=== PATIENT | female | born 1955 | race Two or more races ===

== ENCOUNTER 2019-04-14 01:28 | Emergency (ER) | payer MEDICARE ==
[2019-04-14] MEDS ORDERED: ACETAMINOPHEN 325 MG TABLET PO ONE (03:04)
[2019-04-14] MEDS ORDERED: TRAMADOL HCL 50 MG TABLET PO ONE (06:53)
--- NOTE | 2019-04-14 06:54 | ER Document Report ---
ED General - General Chief Complaint: Mouth Problem Stated Complaint: TOOTHACHE Time Seen by Provider: 04/14/19 06:05 Notes: 63-year-old female presents to the ER with multiple complaints. Patient's first complaint was that she has a toothache on her right lower tooth. She states is been aching on and off it started yesterday. She denies any fever chills denies any problems swallowing. Denies any falls or trauma. Patient also has a his tory of nephrotic syndrome and chronic leg swelling. The patient came in from [place] 4 days ago. States she is moving here. States she has multiple medical problems. She states she was not getting the treatment she felt that she was needing in [place] and has come here. She has not established or made an attempt to establish with anybody yet. She denies any fever or chills. States she aches all over more so her legs. Her legs have chronic skin changes. She feels that they are more swollen than usual. - Related Data Allergies/Adverse Reactions: acetaminophen [From Vicodin] Allergy (Verified 04/14/19 01:33) carisoprodol [From Soma] Allergy (Verified 04/14/19 01:33) hydrocodone [From Vicodin] Allergy (Verified 04/14/19 03:47) Hives morphine Allergy (Verified 04/14/19 03:47) Hallucinations Penicillins Allergy (Verified 04/14/19 03:47) Shortness of Breath tetracycline Allergy (Verified 04/14/19 03:47) Hives xe Allergy (Severe, Uncoded 04/14/19 03:47) Blisters Past Medical History - Social History Smoking Status: Unknown if Ever Smoked Frequency of alcohol use: None Drug Abuse: None Family History: Reviewed & Not Pertinent Patient has suicidal ideation: No Patient has homicidal ideation: No Renal/ Medical History: Denies: Hx Peritoneal Dialysis Review of Systems - Review of Systems Constitutional: denies: Chills, Fever EENT: Dental problem Gastrointestinal: denies: Nausea, Vomiting Musculoskeletal: Leg swelling, Ankle swelling Hematologic/Lymphatic: denies: Other Neurological/Psychological: denies: Headaches -: Yes All other systems reviewed and negative Physical Exam - Vital signs Vitals: Temp Pulse Resp BP Pulse Ox 97.8 F 105 H 16 190/105 H 98 04/14/19 01:36 04/14/19 01:36 04/14/19 01:36 04/14/19 01:36 04/14/19 01:36 - Notes Notes: GENERAL_APPEARANCE: well_nourished, alert, cooperative, no_acute_distress, no_obvious_discomfort. VITALS: reviewed, see vital signs table. HEAD: no_swelling\tenderness on the head. EYES: PERRL, EOMI, conjunctiva_clear. NOSE: no_nasal_discharge. MOUTH: (-)decreased moisture. Overall very poor dentition. #30 tooth pain -no obvious abscess THROAT: no_tonsilar_inflammation, no_airway_obstruction. no_lymphadenopathy NECK: supple, no_neck_tenderness, (-)thyromegaly. BACK: no_back_tenderness. CHEST_WALL: no_chest_tenderness. LUNGS: no_wheezing, no_rales, no_rhonchi, (-)accessory muscle use, good air exchange bilateral. HEART: normal_rate, normal_rhythm, normal_S1, normal_S2, (-)S3, (-)S4, no_murmu r, no_rub. ABDOMEN: soft, no_abd_tenderness, (-)guarding, (-)rebound, no_organomegaly, no_abd_masses. EXTREMITIES: 3+ edema is noted bilateral. There are chronic skin changes and leg wounds, there appears to be a slight bit more redness on the right than the left. SKIN: warm, dry, good_color, no_rash. MENTAL_STATUS: speech_clear, oriented_X_3, normal_affect, responds_appropriately to questions. NEURO: Neg Motor or Sensory Deficits on exam, CN 2-12 intact, DTR 2+ symmetric x 4, No cerbellar signs Course - Re-evaluation Re-evalutation: 04/14/19 06:52 63-year-old female presents to the ER with multiple complaints. She complains of a toothache. I will give her something for pain for that. Patient also complains of lower extremity swelling. She was riding in a car from [place] 3 or 4 days ago. She is moving here. States she is taking her medications. She is here to get established for medical. A lot of this looks chronic we will check some generalized blood work. - Vital Signs Vital signs: Temp Pulse Resp BP Pulse Ox 97.7 F 77 20 151/80 H 98 04/14/19 05:30 04/14/19 05:30 04/14/19 05:30 04/14/19 05:30 04/14/19 05:30 04/14/19 10:26 Patient is doing better. Likely her edema in her legs were due to being on the road so much not been able to elevate her rest likely dependent edema with her already pre-existing venous insufficiency and anasarca. Her tooth has a crown on it. I see no redness around the root or anything to suggest abscess we will place the patient on clindamycin though and something for pain she is very limited for which she can take for pain we will give her a short supply. He is to get in contact with dentistry for evaluation as soon as possible. Chest x-ray and BNP were low my suspicion for heart failure is is low patient states she has more than enough Lasix at home advised her to rest elevate her feet and take the Lasix as prescribed. Encouraged her to establish with primary care soon as possible. - Laboratory Result Diagrams: 04/14/19 06:50 04/14/19 06:50 Laboratory results interpreted by me: 04/14/19 04/14/19 04/14/19 06:50 06:50 07:34 RDW 14.7 H Carbon Dioxide 31 H BUN 21 H Est GFR ( Amer) 53 L Est GFR (Non-Af Amer) 43 L Glucose 259 H Total Protein 5.7 L Albumin 3.3 L Urine Protein >=500 H Urine Glucose (UA) 150 H - Diagnostic Test Radiology reviewed: Reports reviewed Radiology results interpreted by me: 04/14/19 10:25 Chest X-Ray 04/14/19 06:47 IMPRESSION: No evidence of acute intrathoracic disease. Suspect minimal right basilar fibrosis and/or atelectasis. - EKG Interpretation by Nh EKG shows normal: Sinus rhythm Rate: Normal Rhythm: NSR Discharge - Discharge Clinical Impression: Toothache, Anasarca, Venous insufficiency of both lower extremities Condition: Good Disposition: HOME, SELF-CARE Instructions: Toothache ([facility]) Prescriptions: Clindamycin HCl [Cleocin 300 mg Capsule] 300 mg PO QID #30 capsule Oxycodone HCl 5 mg PO QID PRN #18 capsule PRN Reason:
[2019-04-14 07:07] LABS: INTERNATIONAL RATION (INR) 0.96; PROTHROMBIN TIME 12.8 SEC (11.4-15.4)
[2019-04-14] MEDS ORDERED: LIDOCAINE 2% VISCOUS SOLN 20 ML UDCUP PO ONE (07:16)
[2019-04-14 07:18] LABS: ALBUMIN 3.3 g/dL (3.5-5.0); ALKALINE PHOSPHATASE 89 U/L (38-126); ANION GAP 7 (5-19); ASPARTATE AMINO TRANSFERASE 27 U/L (14-36); BILIRUBIN,DIRECT 0.3 mg/dL (0.0-0.4); BILIRUBIN,TOTAL 0.6 mg/dL (0.2-1.3); BLOOD UREA NITROGEN 21 mg/dL (7-20); CARBON DIOXIDE 31 mmol/L (22-30); CHLORIDE 101 mmol/L (98-107); CREATINE KINASE 43 U/L (30-135); GLUCOSE 259 mg/dL (75-110); TOTAL PROTEIN 5.7 g/dL (6.3-8.2)
[2019-04-14 07:22] LABS: ABSOLUTE BASOPHILS # (AUTO) 0.1 10^3/uL (0.0-0.2); ABSOLUTE EOSINOPHILS # (AUTO) 0.5 10^3/uL (0.0-0.6); ABSOLUTE MONOCYTES (AUTO) 0.8 10^3/uL (0.1-1.4); ABSOLUTE NEUT (AUTO) 6.4 10^3/uL (1.7-8.2); BASOPHILS % (AUTO) 0.8 % (0-2); EOSINOPHILS % (AUTO) 4.7 % (0-6); HEMATOCRIT 44.2 % (36.0-47.0); LYMPHOCYTES % (AUTO) 20.9 % (13-45); MEAN CORPUSCULAR HEMOGLOBIN 31.6 pg (27.0-33.4); MEAN CORPUSCULAR HGB CONC 33.9 g/dL (32.0-36.0); MEAN CORPUSCULAR VOLUME 93 fl (80-97); MONOCYTES % (AUTO) 8.5 % (3-13); PLATELET COUNT 224 10^3/uL (150-450); RED BLOOD COUNT 4.75 10^6/uL (3.72-5.28); RED CELL DISTRIBUTION WIDTH 14.7 % (11.5-14.0); SEGMENTED NEUTROPHILS % (AUTO) 65.1 % (42-78); TOTAL CELLS COUNTED % (AUTO) 100 %; WHITE BLOOD COUNT 9.8 10^3/uL (4.0-10.5)
[2019-04-14 07:30] LABS: NT PRO BNP 669 pg/mL (5-900)
--- NOTE | 2019-04-14 07:35 | RADIOLOGY REPORT (SQ) ---
EXAM DESCRIPTION: X-ray single view chest. CLINICAL HISTORY: 63 years Female, Edema COMPARISON: None. TECHNIQUE: Single portable x-ray view of the chest performed on 04/14/2019 at 7:14 AM FINDINGS: The lungs are well expanded and are grossly clear. There is probable minimal fibrosis or atelectasis in the right lung base. The lungs are otherwise grossly clear. There is no evidence of a pneumothorax. The cardiac silhouette is normal in size and configuration. The mediastinal contours are normal. No acute osseous abnormality is identified. No focal soft tissue abnormalities are seen. Lines and tubes: None. IMPRESSION: No evidence of acute intrathoracic disease. Suspect minimal right basilar fibrosis and/or atelectasis.
[2019-04-14 07:37] LABS: TROPONIN I < 0.012 ng/mL
[2019-04-14 08:00] LABS: APPEARANCE,URINE CLEAR; BILIRUBIN,URINE NEGATIVE (NEGATIVE); COLOR,URINE YELLOW; GLUCOSE, URINE 150 mg/dL (NEGATIVE); KETONES,URINE NEGATIVE (NEGATIVE); LEUKOCYTE ESTERASE,URINE NEGATIVE (NEGATIVE); NITRITE,URINE NEGATIVE (NEGATIVE); PROTEIN,URINE >=500 mg/dL (NEGATIVE); URINE SPECIFIC GRAVITY 1.019; UROBILINOGEN,URINE NEGATIVE mg/dL (<2.0)
[2019-04-14] MEDS ORDERED: OXYCODONE HCL IR 5 MG TABLET PO ONE (08:38)
[2019-04-14 11:03] VITALS: BP 144/74
--- NOTE | 2019-04-14 11:30 | XCELERA REPORT ---
[address] [address] Lower Extremity Venous Evaluation Procedure: Color flow and duplex imaging bilaterally of the veins of the lower extremities as well as the Common Femoral veins. Right Sided Venous Evaluation Difficult study due to body habitus. Normal vessel filling wall to wall, compression and augmentation as well as Colour flow down to the infrageniculate veins. Left Sided Venous Evaluation Difficult study due to body habitus. Normal vessel filling wall to wall, compression and augmentation as well as Colour flow down to the infrageniculate veins. Critical Findings Study discussed with Dr Urrutia at about 1100 hours. Interpretation Summary No duplex evidence of DVT or obstruction in the bilateral lower extremities. Name: NAIN CARD Berny Age: 63 yrs Gender: Female : [id number] Patient Status: Emergency Patient Location: ER Study Date: 04/14/2019 08:36 AM Reason For Study: Leg swelling Ordering Physician: SHAGUFTA URRUTIA Performed By: Felix Navas : SHAGUFTA URRUTIA > Mo Elizondo
== END 2019-04-14 11:03 | disposition home or self-care (01) ==
LOC: ER 01:28
DX: K08.9 Disorder of teeth and supporting structures, unspecified (principal); R60.1 Generalized edema; I87.2 Venous insufficiency (chronic) (peripheral); Z88.0 Allergy status to penicillin; Z88.6 Allergy status to analgesic agent
CPT/HCPCS: 36415; 82550; 85025; 85610; 80053; 81001; 84484; 83880; 93970 ×2; 71045; A9270 ×3; J3490; 99284